=== PATIENT | male | born 1955 | race Caucasian/White ===

== ENCOUNTER → 2018-12-11 | Outpatient (CLI) | payer BC ==
[~2018-12-11] MED LIST: CENTRUM1 TAB PO; FLEXERIL 1010 MG/TAB PO; GLUCOSAMINE & C1 CAP PO; LISINOPRIL2.5 MG PO; VITAMIN C500 MG PO
== END ==
LOC: COL.RAD 12-10 13:00
DX: K76.9 Liver disease, unspecified (principal); R19.7 Diarrhea, unspecified
CPT/HCPCS: Q9967

== ENCOUNTER → 2018-12-23 | Outpatient (CLI) | payer BC | LOC: COL.RAD 07:10 | DX: D18.03 Hemangioma of intra-abdominal structures (principal) | CPT/HCPCS: A9585 ==